=== PATIENT | male | born 1980 | race Caucasian/White ===

== ENCOUNTER 2024-08-13 09:41 | Day surgery (SDC) | payer OTHER ==
[~2024-08-13] VITALS: Ht 177.8 cm; Wt 96.1 kg
[~2024-08-13 09:41] MED LIST: Lactated Ringer's 1,000 ML IV ONE; propofoL 50 ML IV ONE
[2024-08-13] MEDS ORDERED: ATORVASTATIN CA20 MG (09:51)
[2024-08-13] MEDS ORDERED: EUTHYROX88 MC1 (09:51)
[2024-08-13] MEDS ORDERED: Lactated Ringer's 1,000 ML IV ONE (10:19)
[2024-08-13 11:10] VITALS: BP 126/92
== END 2024-08-13 11:05 | disposition home or self-care (01) ==
LOC: ORSCSDS 09:41
PROVIDERS: Surgery
PROC: 0DJD8ZZ Inspection of Lower Intestinal Tract, Via Natural or Artificial Opening Endoscopic (ICD-10-PCS; principal; 2024-08-13 11:15)
DX: Z12.11 Encounter for screening for malignant neoplasm of colon (principal); J45.909 Unspecified asthma, uncomplicated; E03.9 Hypothyroidism, unspecified; E78.5 Hyperlipidemia, unspecified; Z87.891 Personal history of nicotine dependence; Z79.899 Other long term (current) drug therapy
CPT/HCPCS: J2704; J7120